=== PATIENT | female | born 1995 | race African-American/Black ===

== ENCOUNTER 2016-07-29 18:19 | Emergency (ER) | payer OTHER ==
[2016-07-29 18:57] LABS: BASOPHIL 0.2 % (0-2); EOSINOPHIL 0.2 % (0-5); HCT 39.2 % (37.0-47.0); HGB 13.8 g/dl (12.5-16.0); LYMPHOCYTE 18.4 % (15-48); MCH 29.2 pg (25.0-31.0); MCHC 35.2 g/dL (32.0-36.0); MCV 83.1 fL (78.0-100.0); MONOCYTE 4.1 % (0-12); MPV 11.1 fL (6.0-9.5); NEUTROPHIL 77.1 % (41-80); PLT 257 K/uL (150-400); RBC 4.72 M/uL (4.20-5.40); RDW 12.6 % (11.5-14.0); WBC 8.9 K/uL (4.0-10.5)
[2016-07-29 18:59] LABS: ALBUMIN 4.9 g/dL (3.5-5.0); BILIRUBIN - TOTAL 0.4 mg/dL (0.1-1.0); CREATININE 0.6 mg/dL (0.5-1.0); GLOBULIN (CALCULATION) 3.1 g/dL (2.2-4.2); POTASSIUM 3.5 mmol/L (3.5-5.1)
== END 2016-07-29 21:09 | disposition home or self-care (01) ==
LOC: FER 18:19
PROVIDERS: Nurse Practitioner
DX: R10.84 Generalized abdominal pain (principal); R11.2 Nausea with vomiting, unspecified; R19.7 Diarrhea, unspecified; E10.9 Type 1 diabetes mellitus without complications
CPT/HCPCS: 36415; 80053; 82009; 82150; 83690; 85025; J2405; J2765